=== PATIENT | female | born 1990 ===

== ENCOUNTER 2020-09-16 10:30 | Outpatient (RCR) | payer OTHER, SELFPAY ==
--- NOTE | 2020-09-01 12:07 | PC.ADMIT ---
Patient is a 29 year old female who self referred to the [facility] d/t increase in depression with passive SI, no plan or intent, and an increase in anxiety secondary to feeling overwhelmed with stress since the start of the pandemic including feeling overwhelmed with taking care of her 2 children on her own as she stated her ex has not payed child support and is not involved with the children as he should be stating he is doing zero to support the children and she feels she is doing everything. Patient also reports that she is struggling with her children being home and her son is doing remote learning. In addition, she reports 2-3 months of sobriety from heroin however relapsed 2 times since then reporting an overdose on 08/04/20 where Narcan was utilized and again on 08/21/20. Patient stated she started using heroin in 2017. Patient is interested in medication assisted treatment and agreed to a referral to the [facility]. She reported that the overdose was a, wake up call . Patient also encouraged to attend online substance use groups. Patient is alert and oriented x4. Calm and cooperative. Denied current SI or thoughts to harm herself. Gave verbal permission to email her a copy of her safety plan. Medications reconciled with patient and patient's pharmacy. Patient reports taking medications as prescribed.
[2020-09-01 12:12] VITALS: BMI 36.1
--- NOTE | 2020-09-01 12:56 | P.HPPSP_ITS ---
HPI Chief Complaint: Mood dysregulation Sources of Information: patient interviewed HPI Narrative: The patient is a 29 year old descendant female, single, mother of 2 minor children (6 year old son and 4 year old daughter), living with her children and boyfriend, homemaker with good social support referred from the community for mood dysregulation. The patient reported that she had a depressive episode at the age fo 20 and she was treated with Celexa and later with Zoloft but later she presented sporadic episodes of elated mood, increased energy and irritability with shopping sprees and she was diagnosed with Bipolar Disorder. During the intake interview, she reported that she was under the care of a prescriber and she has just started on Abilify 5 mg with no improvement on her mood lability. She also admitted a past history of heroin abuse, last use 1 month ago but with no prior formal treatment. Her longest period of sobriety was over 18 months without any treatment. We discussed her diagnosis, treatment options and prognosis and she agreed on the plan below. No safety concerns at this time, Lizama warning was given and the patient understood. Past Psychiatric History: Never admitted into the hospital for psychiatric reas ons. Her first psychiatric contact was at the age of 20 to the [facility] counselor for depression. She has always followed outpatient services. She has tried Seroquel in the past as a mood stabilizer. Medical Evaluation Reviewed: Yes [facility] Medical History Asthma Celiac disease Hypothyroidism Surgical History History of section History of thyroidectomy Family History: Unknown, the patient was adopted from [facility] Social History: The patient was adopted as a baby, her milestones were achieved at expected age. She had a good childhood, she was raised by adopted parents and later, after graduation, she went to college. She has 2 minor children from a previous relation. Currently, she lives with her children and boyfriend, she has good social support and she is a homemaker. Substance History: Denies alcohol, tobacco. Admitted abusing of heroin sporadically. Trauma History: Denies. Diagnostics Vital Signs (24Hr): Body Mass Index 36.1 Meds/Allergies Allergies Allergies Allergy/AdvReac Type Severity Reaction Status Date / Time doxycycline Allergy Photosensit Verified 09/01/20 11:47 ivity gluten Allergy Stomach Verified 09/01/20 11:47 Upset Penicillins [PCN] Allergy Unknown Verified 09/01/20 11:47 Mental Status Exam Mental Status Exam Patient Appearance: Well Grooomed and Appropriate Patient Orientation: Person, Place, Time and Situation Level of Consciousness: Awake and Appropriate Patient Behavior: Cooperative and Good Eye Contact Mood Description: Calm Affect Description: Constricted Patient Cognition Impaired: No Ability to Follow Directions: Good Speech Pattern: Clear Memory Description: Intact Hallucinations: None Delusions: Not Present Thought Process: Goal Oriented Thought Content: positive for Circumstantial and positive for Linear Judgement: Fair Judgement and Insight: Insight fair Assessment & Plan Assessment & Plan (1) Bipolar 2 disorder: Status: Acute Code(s): F31.81 - Bipolar II disorder Assessment and Plan: 1. Psychoeducation into her condition was provided. 2. We discussed options and she agreed to increase Abilify to a therapeutic dose as a mood stabilizer. up to 10 mg po daily. 3. F/U in 1 week Certification I certify that partial hospital treatment is medically necessary due to the symptoms and problems resulting from the patient's mental illness and the failure to treat the patient at the partial hospital level of care would likely result in the patient requiring inpatient psychiatric care which could not be prevented at a less intensive level of care. Telehealth Telehealth Location of provider rendering services: practice address Location of patient: address on file Patient Identification confirmed using: Name, : No Telehealth method: video Patient verbally consented to treatment: Yes Patient verbally consented to billing insurance company: Yes Patient informed of any privacy concerns related to visit: No Time spent with patient (mins): 45
--- NOTE | 2020-09-02 10:56 | PC.NURSE ---
Flora is interested in Medication assisted treatment for opiate use and wanted me to call [facility] ([facility]) to set up an appointment for Paresh. Spoke to Sylwia OLMOS from [facility] who will call the patient to set up an appointment.
--- NOTE | 2020-09-06 14:51 | HO.PHPPROGNO ---
Subjective Subjective Date of Service: 09/06/20 Reason For Visit: Mood dysregulation Interim History: The patient reported that she is doing fine, no side effects with the increase of Abilify. She admitted that she was using 5 to 10 bags a day of heroin, her last use at the begining of August. We received notes from PCP that showed that problem Medication Compliance: Yes Side effects from medications: No Attending Groups: Yes Review of Systems Review of Systems Yes all other systems are reviewed and are negative Mental Status Exam Mental Status Exam Patient Appearance: Well Grooomed Patient Orientation: Person, Place, Time and Situation Level of Consciousness: Awake and Appropriate Patient Behavior: Appropriate Mood Description: Calm and Appropriate Affect Description: Calm and Constricted Patient Cognition Impaired: No Ability to Follow Directions: Good Speech Pattern: Clear Memory Description: Intact Hallucinations: None Thought Process: Goal Oriented Thought Content: positive for Intact Judgement: Fair Diagnostics Vital Signs (24Hr): Body Mass Index 36.1 Assessment & Plan Assessment & Plan (1) Bipolar 2 disorder: Status: Acute Code(s): F31.81 - Bipolar II disorder Assessment and Plan: She has some mood stability with Abilify 10 mg, some residual symptoms. Plan: Keep on Ability 10 mg for this week, if symptoms continue, increase Abilify to 15 mg (2) Opioid abuse: Status: Acute Code(s): F11.10 - Opioid abuse, uncomplicated Assessment and Plan: The patient claims to be clean and sober, she is fully aware that we can refer her to outpatient Suboxone services or any other opioid agonist therapy Certification I certify that partial hospital treatment is medically necessary due to the symptoms and problems resulting from the patient's mental illness and the failure to treat the patient at the partial hospital level of care would likely result in the patient requiring inpatient psychiatric care which could not be prevented at a less intensive level of care. Greater than 50% of the session was spent on counseling and/or coordination of care Discharge Plan Discharge Attending provider: Georges Robins Medications: New aripiprazole [Abilify] 10 mg tablet 10 mg PO DAILY Qty: 30 RF: 0 hydroxyzine pamoate [Vistaril] 25 mg capsule 25 mg PO BEDTIME Qty: 30 RF: 0 Continued albuterol sulfate 2.5 mg /3 mL (0.083 %) Solution For Nebulization 2.5 mg INHALATION Q4H PRN (Reason: Wheezing) RF: 0 albuterol sulfate [ProAir HFA] 90 mcg/actuation Hfa Aerosol Inhaler 2 puff INHALATION Q4H PRN (Reason: Shortness Of Breath) RF: 0 Qvar RediHaler 80 mcg/actuation Hfa Aerosol Breath Activated 1 inh INHALATION BID RF: 0 levothyroxine 200 mcg Capsule 200 mcg PO DAILY RF: 0 clonidine HCl 0.1 mg Tablet 0.1 mg PO BID PRN (Reason: Anxiety) Qty: 60 RF: 0 Discontinued hydroxyzine HCl 25 mg Tablet 25 mg PO BEDTIME PRN (Reason: Insomnia) RF: 0 aripiprazole [Abilify] 5 mg Tablet 5 mg PO BEDTIME RF: 0 Telehealth Telehealth Location of provider rendering services: practice address Location of patient: address on file Patient Identification confirmed using: Name, : Yes Telehealth method: video Patient verbally consented to treatment: Yes Patient verbally consented to billing insurance company: Yes Patient informed of any privacy concerns related to visit: No Time spent with patient (mins): 15
--- NOTE | 2020-09-08 08:40 | PC.NURSE ---
I called and LM for pt. I asked her to pls call to check in and discuss treatment and scheduled/ length of stay.
--- NOTE | 2020-09-09 09:22 | PC.NURSE ---
Patient has an appointment on 09/14/20 at 1400 with the [facility] for medication assisted treatment regarding substance use history.
--- NOTE | 2020-09-14 12:51 | HO.PHPPROGNO ---
Subjective Subjective Date of Service: 09/14/20 Reason For Visit: Mood dysregulation Interim History: The patient reported that she is doing well with the current regimen. No side effects. Medication Compliance: Yes Side effects from medications: No Attending Groups: Yes Review of Systems Acute medical concerns: Yes Medical Review of Systems: unchanged Mental Status Exam Mental Status Exam Patient Appearance: Well Grooomed Patient Orientation: Person, Place, Time and Situation Level of Consciousness: Awake Patient Behavior: Appropriate Mood Description: Calm Affect Description: Calm Patient Cognition Impaired: No Ability to Follow Directions: Good Speech Pattern: Clear Memory Description: Intact Hallucinations: None Delusions: Not Present Thought Process: Intact Thought Content: positive for Intact Judgement: Fair Diagnostics Vital Signs (24Hr): Body Mass Index 36.1 Assessment & Plan Assessment & Plan (1) Bipolar 2 disorder: Status: Acute Code(s): F31.81 - Bipolar II disorder Assessment and Plan: The patient is an adult descendant female with Bipolar disorder type II, recently started on Abilify as a moood stabilizer, so far, she is doing fine. Plan: Keep same treatment. (2) Opioid abuse: Status: Acute Code(s): F11.10 - Opioid abuse, uncomplicated Assessment and Plan: The patient has been clean and sober since the first week of August Certification I certify that partial hospital treatment is medically necessary due to the symptoms and problems resulting from the patient's mental illness and the failure to treat the patient at the partial hospital level of care would likely result in the patient requiring inpatient psychiatric care which could not be prevented at a less intensive level of care. Greater than 50% of the session was spent on counseling and/or coordination of care Discharge Plan Discharge Attending provider: Georges Robins Medications: New aripiprazole [Abilify] 10 mg tablet 10 mg PO DAILY Qty: 30 RF: 0 hydroxyzine pamoate [Vistaril] 25 mg capsule 25 mg PO BEDTIME Qty: 30 RF: 0 Continued albuterol sulfate 2.5 mg /3 mL (0.083 %) Solution For Nebulization 2.5 mg INHALATION Q4H PRN (Reason: Wheezing) RF: 0 albuterol sulfate [ProAir HFA] 90 mcg/actuation Hfa Aerosol Inhaler 2 puff INHALATION Q4H PRN (Reason: Shortness Of Breath) RF: 0 Qvar RediHaler 80 mcg/actuation Hfa Aerosol Breath Activated 1 inh INHALATION BID RF: 0 levothyroxine 200 mcg Capsule 200 mcg PO DAILY RF: 0 clonidine HCl 0.1 mg Tablet 0.1 mg PO BID PRN (Reason: Anxiety) Qty: 60 RF: 0 Discontinued hydroxyzine HCl 25 mg Tablet 25 mg PO BEDTIME PRN (Reason: Insomnia) RF: 0 aripiprazole [Abilify] 5 mg Tablet 5 mg PO BEDTIME RF: 0 Telehealth Telehealth Location of provider rendering services: practice address Location of patient: address on file Patient Identification confirmed using: Name, : Yes Telehealth method: video Patient verbally consented to treatment: Yes Patient verbally consented to billing insurance company: Yes Patient informed of any privacy concerns related to visit: No Time spent with patient (mins): 15
--- NOTE | 2020-09-16 15:51 | PC.NURSE ---
I called and left a message for pt's therapist, Chato Merritt at [facility] ([phone]). I let him know about pt's successful discharge from [facility] today.
== END 2020-09-19 08:26 | disposition home or self-care (01) ==
LOC: HO.PHPA 10:30
PROVIDERS: Visit Provider Psychiatry & Neurology Psychiatry
DX: F31.81 Bipolar II disorder (principal); F11.20 Opioid dependence, uncomplicated
CPT/HCPCS: 90791; 90853